=== PATIENT | male | born 1985 | race Caucasian/White ===

== ENCOUNTER 2020-08-07 07:25 | Day surgery (SDC) | payer BC ==
[2020-08-03 12:56] VITALS: BMI 39.3
[2020-08-07] MEDS ORDERED: ROCURONIUM BROMIDE 50 MG/5 ML VIAL ONE (09:14)
[2020-08-07] MEDS ORDERED: PROPOFOL 20 ML ONE (09:14)
[2020-08-07] MEDS ORDERED: MIDAZOLAM HCL 2 MG/2 ML SINGLE DOSE VIAL ONE ×2 (09:15→11:50)
[2020-08-07] MEDS ORDERED: ETOMIDATE 20 MG/10 ML AMPUL IVPUSH ONE (09:34)
[2020-08-07] MEDS ORDERED: SUCCINYLCHOLINE CHLORIDE 200 MG/10 ML SYRINGE ONE (09:48)
[2020-08-07] MEDS ORDERED: ONDANSETRON 4 MG/2 ML VIAL ONE ×2 (09:49→11:32)
[2020-08-07] MEDS ORDERED: KETOROLAC TROMETHAMINE 30 MG/1 ML VIAL ONE (09:49)
[2020-08-07] MEDS ORDERED: ceFAZolin SODIUM 1 GM VIAL ONE (09:49)
[2020-08-07] MEDS ORDERED: DEXAMETHASONE SOD PHOSPHATE 4 MG/1 ML VIAL ONE ×2 (09:49→11:32)
[2020-08-07] MEDS ORDERED: POLYMYXIN B SULFATE 500,000 UNIT VIAL ONE (10:02)
[2020-08-07] MEDS ORDERED: BUPIVACAINE HCL/PF 0.25% (2.5MG/ML) 10 ML VIAL ONE (10:02)
[2020-08-07] MEDS ORDERED: GENTAMICIN SO4 80 MG/2 ML VIAL ONE (10:02)
[2020-08-07] MEDS ORDERED: LIDOCAINE HCL/PF 2% SDV 5ML VIAL ONE (10:17)
[2020-08-07] MEDS ORDERED: EPHEDRINE SULFATE/0.9% NACL/PF 50 MG/10 ML SYRINGE NR ONE (10:40)
[2020-08-07] MEDS ORDERED: BUPIVACAINE HCL/PF 0.25% (2.5MG/ML) 10 ML VIAL IJ ONE ×2 (10:41→11:30)
[2020-08-07] MEDS ORDERED: ROCURONIUM BROMIDE 50 MG/5 ML SYRINGE ONE (10:48)
[2020-08-07] MEDS ORDERED: GLYCOPYRROLATE 0.2 MG/1 ML VIAL ONE (11:27)
[2020-08-07] MEDS ORDERED: NEOSTIGMINE METHYLSULFATE 0.5 MG/ML - 10 ML MDV ONE (11:27)
[2020-08-07] MEDS ORDERED: ESMOLOL HCL 100,000 MCG/10 ML VIAL ONE (11:32)
[2020-08-07] MEDS ORDERED: VASOPRESSIN 20 UNITS/ML VIAL IV ONE (11:32)
[2020-08-07] MEDS ORDERED: ONDANSETRON 4 MG/2 ML VIAL IVPUSH PRN ×2 (11:40→12:00)
[2020-08-07] MEDS ORDERED: ENOXAPARIN NA (PORCINE) 40 MG/0.4 ML DISP.SYRIN SQ ONE ×2 (11:40→13:04)
[2020-08-07] MEDS ORDERED: SODIUM CHLORIDE 1,000 ML IV SCH (11:45)
[2020-08-07] MEDS ORDERED: FAMOTIDINE 20 MG/50 ML IVPB 20 MG/50 ML MG IVPB SCH (11:45)
[2020-08-07] MEDS ORDERED: oxyCODONE HCL 5 MG TABLET PO PRN ×2 (12:00)
[2020-08-07] MEDS ORDERED: PROMETHAZINE HCL 25 MG/1 ML VIAL IVPB PRN (12:00)
[2020-08-07] MEDS ORDERED: FAMOTIDINE 20 MG/50 ML IVPB 20 MG/50 ML MG IVPB ONE (12:08)
[2020-08-07] MEDS ORDERED: FAMOTIDINE 20 MG PREMIXED IVPB IVPB ONE (12:15)
[2020-08-07 12:25] LABS: HEMOGLOBIN 15.6 GM/dl (11.7-16.9); MCH 29.9 pg (25.7-33.7); MCHC 33.2 g/dl (32.0-35.9); MEAN CELL VOLUME 89.9 fl (80-96); MEAN PLT VOLUME 9.5 fl (7.5-11.1); PLATELET COUNT 385 K/MM3 (134-434); RBC 5.23 M/mm3 (4.00-5.60); RDW 11.8 % (11.9-15.9)
[2020-08-07 12:39] LABS: CALCIUM 9.1 mg/dl (8.5-10)
[2020-08-07] MEDS ORDERED: oxyCODONE HCL 5 MG TABLET ONE (13:13)
[2020-08-07] MEDS ORDERED: ACETAMINOPHEN 1000 MG/100 ML VIAL (NON FORMULARY) IVPB ONE (14:10)
[2020-08-07] MEDS ORDERED: ACETAMINOPHEN INJECTION 100 ML IVPB ONE (14:10)
[2020-08-07 15:38] VITALS: BP 128/77; PULSE 76; TEMP 97.9
== END 2020-08-07 15:37 | disposition home or self-care (01) ==
LOC: FASU 07:25
PROVIDERS: ATTEND Surgery
PROC: 0FB24ZX Excision of Left Lobe Liver, Percutaneous Endoscopic Approach, Diagnostic (ICD-10-PCS; 2020-08-07)
PROC: 0DQ64ZZ Repair Stomach, Percutaneous Endoscopic Approach (ICD-10-PCS; 2020-08-07)
PROC: 0DV64CZ Restriction of Stomach with Extraluminal Device, Percutaneous Endoscopic Approach (ICD-10-PCS; principal; 2020-08-07 10:34)
DX: E66.01 Morbid (severe) obesity due to excess calories (principal); Z68.39 Body mass index [BMI] 39.0-39.9, adult; R16.0 Hepatomegaly, not elsewhere classified
CPT/HCPCS: 36415; 74240-TC-FY; 80048; 85027; 88305-TC; 88313-TC; 94760; J0131

== ENCOUNTER 2023-08-14 06:15 | Emergency (ER) | payer BC ==
[2023-08-14 06:23] VITALS: BP 131/84; PULSE 74; RESP 20; TEMP 97.4; BMI 33.2
== END 2023-08-14 07:38 | disposition home or self-care (01) ==
LOC: JER 06:15
PROC: 0C913ZZ Drainage of Lower Lip, Percutaneous Approach (ICD-10-PCS; principal; 2023-08-14)
DX: L03.011 Cellulitis of right finger (principal); R22.31 Localized swelling, mass and lump, right upper limb
CPT/HCPCS: 99283-25